=== PATIENT | female | born 1950 ===

== ENCOUNTER 2017-06-28 02:57 | Outpatient (CLI) | payer MEDICARE | END 2017-06-28 23:59 | disposition home or self-care (01) | LOC: DIABETIC 02:57 | PROVIDERS: ATTEND Internal Medicine | DX: E11.9 Type 2 diabetes mellitus without complications (principal) | CPT/HCPCS: G0108 ==

== ENCOUNTER 2017-10-04 01:29 | Outpatient (CLI) | payer MEDICARE | END 2017-10-04 23:59 | disposition home or self-care (01) | LOC: DIABETIC 01:29 | PROVIDERS: ATTEND Internal Medicine | DX: E11.9 Type 2 diabetes mellitus without complications (principal) | CPT/HCPCS: G0108 ==